=== PATIENT | female | born 1960 | race Caucasian/White ===

== ENCOUNTER 2022-05-08 09:00 | Emergency (ER) | payer MEDICARE ==
[~2022-05-08] VITALS: Ht 152.4 cm; Wt 68.0 kg
== END 2022-05-08 14:11 | disposition home or self-care (01) ==
LOC: ER 09:00
DX: H92.01 Otalgia, right ear (principal); R51.9 Headache, unspecified; Z88.0 Allergy status to penicillin; Z88.2 Allergy status to sulfonamides
CPT/HCPCS: 70450; J0780; J1100; J1200; J1885; J7030